=== PATIENT | male | born 1950 | race Caucasian/White ===

== ENCOUNTER → 2016-05-12 | Outpatient (CLI) | payer OTHER | LOC: MMPC 11:11 | PROVIDERS: ATTEND Internal Medicine | DX: E11.65 Type 2 diabetes mellitus with hyperglycemia (principal); I10 Essential (primary) hypertension; E03.9 Hypothyroidism, unspecified; E78.5 Hyperlipidemia, unspecified | CPT/HCPCS: 99214; G0463 ==

== ENCOUNTER → 2016-06-10 | Outpatient (CLI) | payer OTHER ==
--- NOTE | 2016-06-10 11:57 | DI ---
AP PELVIS and LEFT HIP, 06/10/2016 10:19 AM: Clinical History: Left hip pain. Previous Exam: None at this facility. There is no soft tissue abnormality. The bony structures of the pelvis are normal. 2 views of the lef t hip are normal. Readin. No acute or chronic abnormality of the left hip is noted. 2. The AP pelvis view is unremarkable.
--- NOTE | 2016-06-10 13:15 | DI ---
LUMBAR SPINE SERIES, 06/10/2016 11:04 AM: Clinical History: Low back pain. Previous Exam: 09/05/2009. Upright AP and lateral and upright lateral flexion and extension views are submitted. The vertebral b odies are of normal height and size. The patient is status post laminectomies from L3-L5. There is se vicki disc space narrowing at L2-3 through L4-5 with moderately severe narrowing at L1-2 and L5-S1. Th ere is a grade 1 reverse spondylolisthesis at L4-5 and this does not change with flexion and extensio n maneuvers. Both SI joints are normal. Readin. Chronic disc space narrowing is present at all lumbar levels. The patient is status post laminect omies at L3-L5. 2. There is a grade 1 reverse spondylolisthesis at L4-5 and this does not change with flexion and ex tension maneuvers. There are degenerative arthritic changes at all apophyseal joint levels but most s everely between L2-3 through L5-S1.
== END ==
LOC: ORTHO 11:22
PROVIDERS: ATTEND Physician Assistant
DX: M54.5 Low back pain (principal); M48.06 Spinal stenosis, lumbar region; M47.26 Other spondylosis with radiculopathy, lumbar region; M25.552 Pain in left hip; M16.12 Unilateral primary osteoarthritis, left hip
CPT/HCPCS: 72110; 73502; 99214; G0463

== ENCOUNTER 2016-06-11 13:57 | Day surgery (SDC) | payer OTHER ==
[~2016-06-11 13:57] MED LIST: BETAMET ACET/BETAMET NA PH 6 MG/1 ML - 5 ML ONE; Iopamidol Inj 61% 50 ML VIAL ONE; LIDOCAINE W/ SODIUM BICARB 0.5 ML SYR ONE; ROPIVACAINE HCL 7.5 MG/1 ML - 20 ML ONE
[2016-06-11 15:27] VITALS: RESP 18; TEMP 98
== END 2016-06-11 15:14 | disposition home or self-care (01) ==
LOC: SDSC 13:57
PROVIDERS: ATTEND Orthopaedic Surgery
DX: M16.12 Unilateral primary osteoarthritis, left hip (principal)
CPT/HCPCS: 20610; 76000; J0702

== ENCOUNTER → 2016-06-15 | Outpatient (CLI) | payer OTHER ==
[2016-06-15 15:22] LABS: CREATININE, URINE 74.3 MG/DL (15-500)
[2016-06-15 15:50] LABS: HEMOGLOBIN A1C 7.87 % (4.2-6.0)
[2016-06-15 15:51] LABS: BLOOD UREA NITROGEN 34 mg/dL (7-22); CALCIUM 8.5 mg/dL (8.7-10.7); CHOL/HDL RATIO 5.45 RATIO (0-4.0); EST GLOMERULAR FILTRATION > 60 (>60 ml/min/1.73m(2)); HDL CHOLESTEROL 37 mg/dL (40-150); SERUM ALBUMIN 3.4 g/dL (3.5-4.8); SERUM CHOLESTEROL 202 mg/dL (120-200)
[2016-06-15 16:38] LABS: HEMATOCRIT 45.1 % (42.0-52.0); HEMOGLOBIN 14.7 g/dL (14.0-18.0); MEAN CORPUSCULAR HEMOGLOBIN 26.5 PG (27-31); MEAN CORPUSCULAR HGB CONC 32.6 g/dL (33-37); MEAN CORPUSCULAR VOLUME 81.4 FL (80-90); MONOCYTES % (AUTO) 12.3 % (5-15); NEUTROPHILS % (AUTO) 62.8 % (50-80); RED BLOOD COUNT 5.54 10^6/uL (4.70-6.10)
[2016-06-15 16:39] LABS: BASOPHILS # (AUTO) 0.07 10*3/UL; BASOPHILS % (AUTO) 0.8 % (0-1); EOSINOPHILS # (AUTO) 0.19 10*3/UL; EOSINOPHILS % (AUTO) 2.1 % (0-8); LYMPHOCYTES # (AUTO) 1.93 10*3/uL; MONOCYTES # (AUTO) 1.09 10*3/UL (0.3-0.8); NEUTROPHILS # (AUTO) 5.56 10*3/UL; PLATELET MORPHOLOGY COMMENT NORMAL MORPHOLOGY (NORM); RBC MORPHOLOGY COMMENT NORMAL MORPHOLOGY (NORM); WBC MORPHOLOGY COMMENT NORMAL MORPHOLOGY (NORM)
== END ==
LOC: LAB 14:28
PROVIDERS: ATTEND Internal Medicine
DX: E11.9 Type 2 diabetes mellitus without complications (principal); Z79.4 Long term (current) use of insulin; E78.5 Hyperlipidemia, unspecified; I10 Essential (primary) hypertension; E03.9 Hypothyroidism, unspecified; Z12.5 Encounter for screening for malignant neoplasm of prostate
CPT/HCPCS: 36415; 80053; 80061; 82043; 82550; 83036; 84443; 85025; G0103

== ENCOUNTER → 2016-06-16 | Outpatient (CLI) | payer OTHER ==
--- NOTE | 2016-06-16 20:55 | DI ---
MRI LUMBAR SPINE SCAN WITHOUT AND WITH IV CONTRAST, 06/16/2016 8:56 AM: Clinical History: Lumbosacral spondylosis with radiculopathy. Previous Exam: 06/27/2012. Sequences: Pre and post contrast sagittal and post contrast axial T1 weighted images with precontrast sagittal and axial T2 weighted and axial PD scans. Contrast Dose: 20 mL of ProHance (279.3 mg/mL) The vertebral bodies are of normal height and size. The patient is status post laminectomies from L3- L5 and there may be partial fusion between the L2-3 vertebral bodies on the right side. There is reve rsal of the lumbar lordosis with what actually represents lumbar kyphosis, with a grade 1 reverse spo ndylolisthesis at L4-5. Severe disc space narrowing is present at L3-4 through L5-S1 with moderately severe narrowing at L1-2. The cord terminates at T12, and the conus medullaris is normal. The T9-10 disc space is normal. There is a bulging but not herniated disc without canal or right neural foramin al stenosis at T10-11. There is left neural foraminal stenosis. T11-12 has a mild central bulging but not herniated disc without canal or neural foraminal stenosis. T12-L1 disc space is normal. L1-2 has bony proliferative change on the right side producing a mild extradural defect but there is no canal or neural foraminal stenosis. A similar finding is present at L2-3 with bony spurring on the right s mc with right neural foraminal stenosis and no canal or left neural foraminal stenosis. The nerve ro ots still exit appropriately. L3-4 as a bulging but not herniated disc without canal or neural forami nal stenosis. There is scar formation along the posterior aspect of the dura. L4-5 has a bulging but not herniated disc and a grade 1 reverse spondylolisthesis and hypertrophic changes of the apophyseal joints and ligamentum flavum. Even with the laminectomy, there is spinal canal stenosis with severe left and moderate right neural foraminal stenosis. The nerve root still exits appropriately on the ri ght side. L5-S1 has a grade 1 reverse spondylolisthesis with a bulging but not herniated disc. There is no canal stenosis but there is bilateral neural foraminal stenosis. Readin. Status post L3-L5 laminectomies with reversal of the usual lumbar lordosis and a grade 1 reverse spondylolisthesis at L4-5. Even with the laminectomies at L4 and L5, there still is spinal canal sten osis at L4-5 with scar tissue formation along the posterior aspect of the dura. There is no significa nt neural foraminal stenosis. 2. There is a grade 1 reverse spondylolisthesis at L5-S1 with bilateral neural foraminal stenosis an d no canal stenosis. 3. L1-2 and L2-3 have bony right-sided anterior extradural indentations without canal or neural fora hussein stenosis. There is no disc herniation. 4. There are bulging but not herniated discs without canal or neural foraminal stenosis at T10-11 an d L3-4. There is postsurgical scarring present along the posterior aspect of the dura at L3-4. 5. The T9-10 and T12-L1 disc spaces are normal.
== END ==
LOC: MRI 08:53
PROVIDERS: ATTEND Physician Assistant
DX: M47.27 Other spondylosis with radiculopathy, lumbosacral region (principal); M43.16 Spondylolisthesis, lumbar region; M43.17 Spondylolisthesis, lumbosacral region; M47.815 Spondylosis without myelopathy or radiculopathy, thoracolumbar region
CPT/HCPCS: 72158

== ENCOUNTER → 2016-06-18 | Outpatient (CLI) | payer OTHER | LOC: MMPC 10:00 | PROVIDERS: ATTEND Orthopaedic Surgery | DX: M16.12 Unilateral primary osteoarthritis, left hip (principal) | CPT/HCPCS: 99213; G0463 ==

== ENCOUNTER → 2016-08-19 | Outpatient (CLI) | payer OTHER | LOC: MMPC 11:11 | PROVIDERS: ATTEND Internal Medicine | DX: E11.9 Type 2 diabetes mellitus without complications (principal); E03.9 Hypothyroidism, unspecified; I10 Essential (primary) hypertension; E78.5 Hyperlipidemia, unspecified; G81.94 Hemiplegia, unspecified affecting left nondominant side; M16.12 Unilateral primary osteoarthritis, left hip; Z86.73 Personal history of transient ischemic attack (TIA), and cerebral infarction without residual deficits; Z86.711 Personal history of pulmonary embolism | CPT/HCPCS: 99214; G0463 ==

== ENCOUNTER → 2016-08-26 | Outpatient (CLI) | payer OTHER | LOC: MMPC 10:00 | PROVIDERS: ATTEND Physician Assistant | DX: M48.07 Spinal stenosis, lumbosacral region (principal); M48.06 Spinal stenosis, lumbar region; M16.12 Unilateral primary osteoarthritis, left hip | CPT/HCPCS: 99213; G0463 ==

== ENCOUNTER → 2016-09-02 | Outpatient (CLI) | payer OTHER ==
--- NOTE | 2016-09-04 11:35 | DI ---
STANDING SCOLIOSIS SERIES, 09/02/2016 2:30 PM: Clinical History: Radicular syndrome of lower limbs. Previous Exam: None at this facility. Standing AP and lateral views are submitted. The vertebral bodies are of normal height and size. The thoracic disc spaces show degenerative change at all levels but most severely at T10-11. There is an terior subluxation of T11 on T12 by about 2 mm. There is severe disc space narrowing at every lumbar level with a grade 1 reverse spondylolisthesis at L4-5. The pedicles in the thoracic and lumbar regio n are normal. Extensive arthritic changes are present in the apophyseal joints from T9-10 through L5- S1. There has been fusion of the left sacroiliac joint with placement of 3 metallic bars in the joint space. Laminectomies have been performed at L3-L5. There is mild dextroscoliosis of the midthoracic spine with a compensatory levoscoliosis of the mid lumbar spine. Mederos angles for the thoracic and lum bar regions are 8 degrees and 11 degrees, respectively. Spinal-Pelvic Relationship Measurements: SVA: 138 mm. T1 Tilt: -3 degrees. PT: 35 degrees. PI: 48 degrees. SS: 12 degrees. LL: -28 degrees. TK: 22 degrees. Readin. The patient is status post laminectomies from L3-L5 and fusion of the left sacroiliac joint. Exte nsive to space narrowing is present throughout the lumbar spine and in the lower thoracic spine with a grade 1 reverse spondylolisthesis at L4-5 and anterior subluxation of T11 on T12 by 2 mm. 2. There is mild dextroscoliosis of the midthoracic spine with a Meedros angle of 8 degrees, and a comp ensatory mild levoscoliosis of the mid lumbar spine with a Mederos angle of 11 degrees. 3. Spinal pelvic relationship measurements are as above. On the lateral view, the patient has lost l umbar lordosis and there is actually lumbar kyphosis.
== END ==
LOC: RAD 14:26
PROVIDERS: ATTEND Neurological Surgery
DX: M54.5 Low back pain (principal); M54.16 Radiculopathy, lumbar region; M43.16 Spondylolisthesis, lumbar region; Z98.1 Arthrodesis status
CPT/HCPCS: 72082

== ENCOUNTER 2016-09-08 06:32 | Day surgery (SDC) | payer OTHER ==
[~2016-09-08 06:32] MED LIST changes: -BETAMET ACET/BETAMET NA PH 6 MG/1 ML - 5 ML ONE; +BUPivacaine Inj 0.25% PF - 10ml vial IV ONE; +Iopamidol Inj 61% 50 ML VIAL INTRATHEC ONE; -Iopamidol Inj 61% 50 ML VIAL ONE; -LIDOCAINE W/ SODIUM BICARB 0.5 ML SYR ONE; -ROPIVACAINE HCL 7.5 MG/1 ML - 20 ML ONE; +TRIAMCINOLONE ACETONIDE 40 MG/1 ML IAC ONE
--- NOTE | 2016-09-08 07:32 | GEN.OPNOTE ---
Transforaminal MAN Procedure Code - Neurosurgery: 17052 : Lumbar Transforaminal Epidural, 19025 : Lumbar Transforaminal Epidural (Add'l Levels) Preoperative Diagnosis: Lumbar stenosis -: Consent: Rationale for procedure, nature of procedure, possible risks and benefits were discussed with the patient. Risks including allergic reaction to medications, known effects of steroid medications including transient elevation in blood sugar with aggravation of pre-existing diabetes and remote risk of aseptic necrosis of the hip. Pain at the injection site, inadvertent dural puncture with resultant in CSF leak and headache possibly requiring further treatment. Infection or bleeding with potential risk of neurologic injury with weakness, paralysis or were all reviewed with the patient who wished to proceed. Anesthesia, sedation: No intravenous access or sedation was used. Physiologic monitoring of pulse and oxygen saturation was utilized. Procedure: The patient was placed prone on the operating room table, prepped with Chloraprep and sterilely draped. The skin was anesthetized with 1% Buffered Xylocaine. Under fluoroscopic control a 22-gauge Touhy needle was advanced into the area of the Kambin's triangle at the left [id number]. Imaging confirmation of needle placement in the posterior, inferior and lateral quadrant of the foramen was obtained. Omnipaque was injected under real-time fluoroscopy demonstrating and epidurogram. Following this 1 ml of a mixture of kenalog(10mg/ml) and 1% ropivacaine was injected. AP and lateral images of the final needle placement was obtained. The needle was removed, the same was done at L5S1 and the patient returned to the post procedure recovery room where they were monitored for any side effects. Pain assessment: Preprocedure pain []/10, post procedure pain []/10. Discharge instructions: Patient was given a pain log to be filled out and returned. A delayed response to the steroids of 2-5 days was discussed.
[2016-09-08 07:42] VITALS: RESP 18; TEMP 97.4
== END 2016-09-08 07:37 | disposition home or self-care (01) ==
LOC: SDSC 06:32
PROVIDERS: ATTEND Pain Medicine Interventional Pain Medicine
DX: M48.06 Spinal stenosis, lumbar region (principal)
CPT/HCPCS: 64483; 64484; 76000; J3301; S0020

== ENCOUNTER 2016-09-21 10:30 | Day surgery (SDC) | payer OTHER ==
[~2016-09-21 10:30] MED LIST changes: +BETAMET ACET/BETAMET NA PH 6 MG/1 ML - 5 ML ONE; -BUPivacaine Inj 0.25% PF - 10ml vial IV ONE; -Iopamidol Inj 61% 50 ML VIAL INTRATHEC ONE; +Iopamidol Inj 61% 50 ML VIAL ONE; +LIDOCAINE MPF 2% - 5 ML (20 MG/1 ML) ONE; +LIDOCAINE W/ SODIUM BICARB 0.5 ML SYR ONE; +ROPIVACAINE HCL 7.5 MG/1 ML - 20 ML ONE; -TRIAMCINOLONE ACETONIDE 40 MG/1 ML IAC ONE
[2016-09-21 12:05] VITALS: RESP 22
[2016-09-21 12:13] VITALS: TEMP 97.6
== END 2016-09-21 11:26 | disposition home or self-care (01) ==
LOC: SDSC 10:30
PROVIDERS: ATTEND Orthopaedic Surgery
DX: M16.12 Unilateral primary osteoarthritis, left hip (principal)
CPT/HCPCS: 20610; 76000; J0702; J2001; J2795

== ENCOUNTER → 2016-09-27 | Outpatient (CLI) | payer OTHER | LOC: MMPC 10:00 | PROVIDERS: ATTEND Orthopaedic Surgery | DX: M16.12 Unilateral primary osteoarthritis, left hip (principal); M54.16 Radiculopathy, lumbar region | CPT/HCPCS: 99213; G0463 ==

== ENCOUNTER 2016-11-26 09:31 | Inpatient (IN) ==
--- NOTE | 2016-11-26 09:41 | PDOC ---
Dyspnea HPI - General Chief Complaint: Dyspnea Stated Complaint: DYSPNEA Date Seen by Provider: 11/26/16 Time Seen by Provider: 09:41 Source: POSITIVE: Patient, Spouse Exam Limitations: POSITIVE: No limitations Treatment Prior to Arrival: REPORTS: Albuterol Neb Treatment - History of Present Illness Initial Comments: Mr. Acevedo is a 66-year-old man coming in into us today with chest pain acute in onset this morning and his left rib area. He was recently diagnosed with recurrence of pulmonary emboli. He was seen here at this hospital on November 19. He was diagnosed with bilateral pulmonary emboli, and transferred to [place]. While in [place], he received anticoagulation in the form of heparin drip. He did not undergo thrombolysis as his vital signs otherwise remained stable. He was discharged on Tuesday, which was 3 days ago, and was initially prescribed Pradaxa. The family was unable to afford this, and so he was switched over to Eliquis by his family physician. He has not taken it yet as he has not picked it up. His states that it is waiting at [facility] this morning and he was going to start taking it today. The chest pain started earlier this morning while he was swinging his leg up to get into bed. Is located in his left anterior distal rib area. He reports mild shortness of breath but no real new shortness of breath since he heard about his diagnosis a few days ago. His oxygen saturation was low when EMS arrived. Family states that hospital staff spoke with him about setting up with home oxygen when he was discharged from [facility] earlier this week. He has no fevers, no cough, no nausea no vomiting no lightheadedness or dizziness. He received a DuoNeb from EMS personnel prior to arrival and it seemed to help him a little bit - Patient Home Medications Home Medications: Home Medications Syring-Needl,Disp,Insul,0.3 ml [Insulin Syringe] 0.3 ml MC 6XD #540 ea 07/22/15 Clindamycin Phosphate 1 applic TOPICAL BID #1 applic 10/24/15 Insulin Glargine Inj [Lantus Inj] 25 units SQ BID #5 vial 06/09/16 Sennosides [Vegetable Laxative] 8.6 mg PO DAILY tab 08/19/16 Zinc Gluconate [Zinc] 50 mg PO DAILY tab 08/19/16 Celecoxib [Celebrex] 1 cap PO DAILY #30 cap 09/01/16 Blood Sugar Diagnostic [Glucose Test Strip] 1 ea IN 6XD #204 strip 09/10/16 Gabapentin 300 mg PO TID #360 cap 09/10/16 Insulin, Lispro [Humalog] 2 - 25 unit SUBCUT TIDWM #22 ea 09/10/16 Levothyroxine Sodium [Synthroid] 1 tab ORAL QD #90 tab 10/01/16 Losartan/Hydrochlorothiazide [Losartan-Hctz 100-25 Mg Tab] 0.5 tab PO DAILY #45 tab 10/01/16 Furosemide 1 tab PO BID #360 tab 10/20/16 hydrocodone 7.5 mg-acetaminophen 325 mg tablet 1 tab PO Q4-6H PRN #120 tab MDD 4 TABS 11/05/16 apixaban 5 mg tablet 5 mg PO BID #60 tab 11/25/16 - Patient Allergies Allergies/Adverse Reactions: Allergies 3 Allergy/AdvReac Type Severity Reaction Status Date / Time aspirin [Aspirin] Allergy Severe SWELLING Verified 11/26/16 09:23 Qsdypwa-Hul-Yfy Reductase AdvReac NOT Verified 11/26/16 09:23 Inhibitor APPLICABLE pencillin Allergy Unknown unknown Uncoded 11/26/16 09:23 Past Medical History - heen HEENT History: Cataracts Additional HEENT History: laser surg right eye Cardiovascular History: Hypertension, PVD, Hyperlipidemia Respiratory History: Denies History Gastrointestinal History: GERD Additional Gastrointestinal History: FLANK PAIN/LOWER ABDOMINAL PAIN/ CHRONIC CONSTIPATION Genitourinary History: Recurrent UTI Additional Genitourinary History: HX OF CHRONIC UTIS Endocrine History: Type 2 Diabetes (insulin), Hypothyroidism Additional Endocrine History: DIABETIC ULCERS OPEN LLE. SMALL HEALING ON RLE Musculoskeletal History: Other (please comment) Prosthesis or Implant: No Additional Musculoskeletal History: CHRONIC LOW BACK PAIN; HAS HAD LUMBAR SURGERY. Fx left fibula 2005 Neurological History: CVA Additional Neurological History: has dysarthria; also numbness left arm/hand, left facial droop; strength "OK" although he "can't always trust his left leg" even though it's not weak per se. Blood Disorders: Denies History Psychiatric History: Denies History History of Sexually Transmitted Diseases: No Cancer History: Denies History History of MDRO: No History of Other Communicable Diseases: No Alcohol Use: None In the Past 12 Months, Have Used or Abuse Any Substance: None Previous Surgical History: Yes Type / Date of Surgery: BACK SX/ EYE SX Anesthesia Reactions: No Malignant Hyperthermia: No Past Medical History Reviewed: Reviewed - No Changes ROS - Limitations ROS Limitations: No Limitations Constitution: REPORTS: Denies Symptoms Cardiovascular: REPORTS: Chest Pain Respiratory: REPORTS: Shortness Of Breath Neurological: REPORTS: Denies Neuro Symptoms Gastrointestinal: REPORTS: Denies GI Symptoms Endocrine: REPORTS: Denies Symptoms Musculoskeletal: REPORTS: Denies MS Symptoms Genitourinary: REPORTS: Denies Symptoms Eyes: REPORTS: Denies Symptoms ENT: REPORTS: Denies Symptoms Skin: REPORTS: Denies Skin Symptoms Lympathic: REPORTS: Denies Lympathic Symptoms Immunologic: POSITIVE: Denies Symptoms Psychiatric: POSITIVE: Denies Psych Symptoms Dyspnea Physical Exam - General Appearance General Appearance: REPORTS: Alert, Cooperative, No Acute Distress - HEENT HEENT: POSITIVE: Head Inspection Nml, Eyes Inspection Nml, Ears Inspection Nml, PERRL, EOMI - Neck Neck: REPORTS: Normal Inspection - Respiratory Respiratory: REPORTS: No Respiratory Distress, Speaks Full Sentences, No Pain on Inspiration (No retractions, no wheezing, breath sounds are slightly coarse diffusely but there is good air movement) - Cardiovascular Cardiovascular: REPORTS: Regular Rate and Rhythm, Heart Sounds Normal, Equal Pulses, Strong Pulses Peripheral Pulses: Radial (R): 2+, Radial (L): 2+, Dorsalis-pedis (R): 1+, Dorsalis-pedis (L): 1+ - Abdomen Abdomen: Soft: (All Quadrants), Normal Bowel Sounds: (All Quadrants), Denies Tenderness: (All Quadrants), No Guarding: (All Quadrants), No Rebound: (All Quadrants), No Distention: (All Quadrants) - Skin Skin: REPORTS: Intact, Normal For Race, Warm, Dry - Extremities Extremity: Non-Tender: (All Extremities), Normal ROM: (All Extremities) - Neurological / Psychological Neurological: POSITIVE: Affect Apporpriate, Oriented X3, watchstander Normal As Tested ( Curtis's slow speech is chronic and stable) Dyspnea Progress - Results Reviewed by me Xrays/CTs/US Reviewed by me: Yes Lab Results Reviewed by Me: Yes CBC and BMP: 11/26/16 09:42 11/26/16 09:42 EKG Interpreted/Reviewed By Me:: Yes EKG Interpretation:: POSITIVE: Normal Sinus Rhythm - Patient's Progress MDM / ED Course: Mr. Rich is a 66-year-old man coming in to us today with acute hypoxia and some chest discomfort likely secondary to a previously diagnosed pulmonary embolism. He has not been on any anticoagulation since leaving [facility] earlier this week on a think this is his largest problem here today. His troponin is slightly elevated, but it is much less than it was at last visit so I think we are catching it on the downswing and it does not represent any new problem. X-ray and the remainder of his labs are not concerning. He remained hypoxic requiring 6 L of these at the nasal cannula to stay above 90%. He got slightly nauseated while he was here, so we gave him a dose of Zofran. We also gave him 2 DuoNeb's which seems to help his E's of breathing. Contacted Dr. Bustillo with the hospitalist service to admit the patient for trending troponins and to monitor his oxygen level. This will also give them a chance to get him started on his anticoagulation Patient Care Time - Estimated PCT Patient Care Time (In Minutes): 35 Vital Signs - Recent Vital Signs Vital Signs: Vital Signs (Last 8 hours) Temp Pulse Resp BP Pulse Ox 11/26/16 09:43 97.4 F 88 22 149/98 85 - VS Reviewed Vital Signs Reviewed: Yes Discharge Clinical Impression: Elevated troponin Discharge Disposition: Admit to Inpatient Condition: Fair Follow Up With: NONE,NONE [Primary Care Provider] - Date Decision to Admit to Inpatient: 11/26/16 Time Decision to Admit to Inpatient: 11:10
--- NOTE | 2016-11-26 09:44 | EKG ---
[address] [address] Measurements Intervals [place] Rate: 83 P: 3 NC: 191 QRS: 7 QRSD: 87 T: 47 QT: 352 QTc: 392 Interpretive Statements SINUS RHYTHM Compared to ECG 11/19/2016 08:14:10 No significant changes Electronically Signed On 11-26-16 10:13:29 MDT by Chance Holman MD [email or web address]
[2016-11-26 10:03] LABS: VENOUS PH 7.44 (7.32-7.42)
[2016-11-26 10:05] LABS: BASOPHILS # (AUTO) 0.07 10*3/UL; BASOPHILS % (AUTO) 0.8 % (0-1); EOSINOPHILS # (AUTO) 0.49 10*3/UL; EOSINOPHILS % (AUTO) 5.9 % (0-8); Hematocrit [HCT] 46.7 % (42.0-52.0); Hemoglobin [HGB] 15.5 g/dL (14.0-18.0); LYMPHOCYTES # (AUTO) 1.79 10*3/uL; MEAN CORPUSCULAR HEMOGLOBIN 28.2 PG (27-31); MEAN CORPUSCULAR HGB CONC 33.2 g/dL (33-37); MEAN CORPUSCULAR VOLUME 84.9 FL (80-90); MEAN PLATELET VOLUME 9.8 FL (7.4-12.2); MONOCYTES # (AUTO) 1.11 10*3/UL (0.3-0.8); MONOCYTES % (AUTO) 13.4 % (5-15); NEUTROPHILS # (AUTO) 4.79 10*3/UL; NEUTROPHILS % (AUTO) 57.9 % (50-80)
[2016-11-26 10:12] LABS: BLOOD UREA NITROGEN 17 mg/dL (7-22)
[2016-11-26 10:17] LABS: PLATELET MORPHOLOGY COMMENT NORMAL MORPHOLOGY (NORM); RBC MORPHOLOGY COMMENT NORMAL MORPHOLOGY (NORM); WBC MORPHOLOGY COMMENT NORMAL MORPHOLOGY (NORM)
[2016-11-26] MEDS ORDERED: NORMAL SALINE 10 ML SYRINGE FLUSH IVP PRN ×2 (10:41→14:40)
[2016-11-26] MEDS ORDERED: Sodium Chloride 0.9% 1,000 ML PRIMARY IV ONE (10:41)
[2016-11-26] MEDS ORDERED: ONDANSETRON 4 MG/2 ML VIAL IVP ONE ×2 (10:59→11:00)
[2016-11-26] MEDS ORDERED: ALBUTEROL SULFATE 5 MG/ML-20 ML BOTTLE NEB ONE (10:59)
--- NOTE | 2016-11-26 11:01 | DI ---
PA /LATERAL CHEST X-RAY, 11/26/2016 9:42 AM : Clinical History: Dyspnea. Previous Exam: 11/19/2016. There is no acute soft tissue or bony abnormality. There is cardiomegaly without CHF. Lungs are clear . Mediastinal structures are normal. There are no pulmonary nodules. Reading: Cardiomegaly without CHF. There has been no significant interval change.
[2016-11-26] MEDS ORDERED: SODIUM CL 0.9% FOR INH 3 ML NEB NEB ONE (11:17)
[2016-11-26] MEDS ORDERED: Apixaban 5 MG TABLET PO ONE (11:17)
[2016-11-26] MEDS ORDERED: LIDOCAINE W/ SODIUM BICARB 0.5 ML SYR SUBD PRN (14:40)
[2016-11-26] MEDS ORDERED: HYDROcodone-APAP 7.5 MG-325 MG TABLET PO PRN (14:44)
--- NOTE | 2016-11-26 14:52 | PDOC ---
HPI - History of Present Illness Date and Time of Service: 11/26/2016 3 PM Chief Complaint: Chest pain with shortness of breath this morning History of Present Illness: This is a 66 years old male with medical history significant for history of hypertension, diabetes, hypothyroidism history of previous PE in 2013 and recent presentation to our hospital with shortness of breath a CT done showed PE acute on chronic and he was transferred to [place] apparently he was put on heparin drip then Lovenox and was discharge on pradaxa however he was unable to get the prescription and he wanted then to switch to eliquis so they got hold of Dr. Madison and that was yesterday he is supposed to get medication today. However he said last night his saturation was 93 he had minimal pain in the chest but this morning he felt like left-sided chest pain worse with taking deep breath he rated his pain at 6 out of 10 and there was no radiation elsewhere and saturation where lower like in the 80s so he will came into the hospital. Was seen in the ER did repeat chest x-ray and was negative a troponin was still mildly elevated but it was lower than a week ago was decided since the patient was not taking his medication to give him eliquis and admitted her to continue the treatment of his PE. When I saw him he had minimal pain and the he is not short of breath. He did report some swelling in his legs but this is old. Past Medical History Medical History: 1. Diabetes mellitus. 2. Hypertension. 3. History of CVA that affected his speech. 4. Hypothyroidism. 5. History of PE at was saddle embolism in 2012 and also recent PE was transferred to [place] to also Surgical History: 1. Lumbar Spine surgery. 2. Sciatic nerve release lateral side of the left knee Family History: Reviewed an Not Pertinent Past Social History: Patient doesn't smoke, doesn't drink nor drugs Tobacco Use: Never Smoker In the Past 12 Months, Have Used or Abuse Any of the Following Substance: None Alcohol Use: None Medication / Allergies Home Medications: Home Medications Medication Instructions Recorded Confirmed Type Syring-Needl,Disp,Insul,0.3 ml 0.3 ml MC 6XD #540 ea 07/22/15 11/26/16 History [Insulin Syringe] Clindamycin Phosphate 1 applic TOPICAL BID #1 applic 10/24/15 11/26/16 History Insulin Glargine Inj [Lantus Inj] 25 units SQ BID #5 vial 06/09/16 11/26/16 Rx Sennosides [Vegetable Laxative] 8.6 mg PO DAILY tab 08/19/16 11/26/16 History Zinc Gluconate [Zinc] 50 mg PO DAILY tab 08/19/16 11/26/16 History Celecoxib [Celebrex] 1 cap PO DAILY #30 cap 09/01/16 11/26/16 Rx Blood Sugar Diagnostic [Glucose 1 ea IN 6XD #204 strip 09/10/16 11/26/16 Rx Test Strip] Gabapentin 300 mg PO TID #360 cap 09/10/16 11/26/16 Rx Insulin, Lispro [Humalog] 2 - 25 unit SUBCUT TIDWM #22 ea 09/10/16 11/26/16 Rx Levothyroxine Sodium [Synthroid] 1 tab ORAL QD #90 tab 10/01/16 11/26/16 Rx Losartan/Hydrochlorothiazide 0.5 tab PO DAILY #45 tab 10/01/16 11/26/16 Rx [Losartan-Hctz 100-25 Mg Tab] Furosemide 1 tab PO BID #360 tab 10/20/16 11/26/16 Clinic hydrocodone 7.5 mg-acetaminophen 1 tab PO Q4-6H PRN #120 tab MDD 4 11/05/16 Rx 325 mg tablet TABS apixaban 5 mg tablet 5 mg PO BID #60 tab 11/25/16 11/26/16 Rx Allergies/Adverse Reactions: Allergies 3 Allergy/AdvReac Type Severity Reaction Status Date / Time aspirin [Aspirin] Allergy Severe SWELLING Verified 11/26/16 13:32 Nuyvgzd-Yoj-Qcr Reductase AdvReac NOT Verified 11/26/16 13:32 Inhibitor APPLICABLE pencillin Allergy Unknown unknown Uncoded 11/26/16 13:32 Review of Systems - Review of Systems All Systems: Reviewed & No Additional Complaints Except as Stated Exam - Vitals Vital Signs: Vital Signs Pulse Rate 60 Blood Pressure 125/74 Pulse Ox 98 Height 5 ft 6 in Weight 258 lb 6 oz Results - Labs CBC and BMP: 11/26/16 09:42 11/26/16 09:42 - EKG Data -: EKG Interpreted by Me Rate: Normal EKG Shows Normal: Sinus Rhythm - EKG Data When Compared to Previous EKG(s) There Are: No Significant Change Assessment and Plan - Patient Problems (1) Bilateral pulmonary embolism Current Visit: No Status: Acute Comment: I looked at both CT from 2012 and the from November 19, the CT from 2012 showed saddle embolus and the one in November 19 showed acute and chronic component to his PE. I think he needs to be on medication to treat this will try to get the records meanwhile I think will put him on eliquis 10 mg dosage twice a day. Will repeat his labs in the morning. There is some wheezing so we 'll put him also on bronchodilator. I did tell him that I think there is a chronic component so he may need thrombectomy and I suggested maybe a referral to [place] however both him and his declined going elsewhere not even for outpatient follow-up. I don't think there is a reason to repeat his CT as I think likely it will still show the same finding that he had November 19, I think he does need to be on active treatment for the PE as he did not take medications since she was discharged on Tuesday. Code(s): I26.99 - Other pulmonary embolism without acute cor pulmonale (2) Diabetes Current Visit: Yes Status: Acute Comment: Continue Lantus and will put him on sliding scale Code(s): E11.9 - Type 2 diabetes mellitus without complications (3) Hypertension Current Visit: Yes Status: Acute Comment: Same medication Code(s): I10 - Essential (primary) hypertension
[2016-11-26] MEDS: GABAPENTIN 300 MG CAPSULE PO SCH ×2 (16:55→21:23)
[2016-11-26] MEDS ORDERED: HYDROcodone-APAP 5 MG -325 MG TABLET PO PRN (16:58)
[2016-11-26] MEDS ORDERED: Senna Tab 8.6 MG TAB PO ONE (16:59)
[2016-11-26] MEDS: Insulin Lispro Flexpen 300 UNIT/3 ML INSULN.PEN SUBCUT SCH (17:24)
--- NOTE | 2016-11-26 18:51 | DI ---
VENOUS DOPPLER ULTRASOUND OF BOTH LOWER EXTREMITIES, 11/26/2016 2:49 PM: Clinical History: Pulmonary embolism. Previous Exam: None at this facility. Technique: 2D real-time imaging is supplemented with color Doppler ultrasound. Compression and augmen tation maneuvers were performed. The deep venous system from the groin to the popliteal fossa for the right leg is normal. The deep ve nous system of the left leg is visualized from the groin to just proximal to Kwasi's canal as well a s in the popliteal fossa. A small of the superficial femoral vein just superior to Kwasi's canal was not completely visualized. The greater saphenous veins are normal. Reading: A very short segment of the superficial femoral vein in the distal thigh just proximal to Kwasi's ca nal could not be optimally visualized. However, the remainder of the deep venous system in the left l eg and the entire deep venous system in the right leg are negative for deep vein thrombosis.
[2016-11-26] MEDS: LEVALBUTEROL HCL 0.63 MG/3 ML NEB SCH (19:19)
[2016-11-26] MEDS ORDERED: INSULIN GLARGINE 25 UNIT SQ SCH (21:00)
[2016-11-26] MEDS: Insulin Glargine SoloStar Inj 100 UNIT/ML INSULN.PEN SUBCUT SCH (21:23)
[2016-11-26] MEDS: Apixaban 5 MG TABLET PO SCH (21:23)
[2016-11-27] MEDS: LEVALBUTEROL HCL 0.63 MG/3 ML NEB SCH ×3 (00:36→15:25)
[2016-11-27] MEDS ORDERED: LEVOTHYROXINE 125 MCG TABLET PO SCH (05:30)
[2016-11-27 05:40] LABS: BLOOD UREA NITROGEN 18 mg/dL (7-22); BUN/CREATININE RATIO 16.36 (6-20)
[2016-11-27 08:31] VITALS: BP 128/68; RESP 20; TEMP 97.4; O2SAT 91
[2016-11-27] MEDS: GABAPENTIN 300 MG CAPSULE PO SCH ×2 (08:51→15:15)
[2016-11-27] MEDS: Insulin Lispro Flexpen 300 UNIT/3 ML INSULN.PEN SUBCUT SCH ×2 (08:51→13:49)
[2016-11-27] MEDS: Apixaban 5 MG TABLET PO SCH (08:51)
[2016-11-27] MEDS: Insulin Glargine SoloStar Inj 100 UNIT/ML INSULN.PEN SUBCUT SCH (08:53)
[2016-11-27] MEDS ORDERED: Senna Tab 8.6 MG TAB PO SCH (09:00)
[2016-11-27] MEDS ORDERED: LOSARTAN/HYDROCHLOROTHIAZIDE 50 MG/12.5 MG TABLET PO SCH (09:00)
--- NOTE | 2016-11-27 10:06 | PDOC(PROG) ---
Date and Time of Service: 11/27/2016 10 AM Interval History: Subjective Patient feels better no chest pain today and no shortness of breath. Objective : Data - Labs CBC and BMP: 11/27/16 13:01 11/27/16 13:01 Objective : Exam - General General Appearance: No Acute Distress, Cooperative, Obese - Head Head Exam: Normal Inspection, Atraumatic - Eye Eye Exam: Normal Appearance - ENT ENT Exam: Normal Exam - Neck Neck Exam: Normal Inspection - Respiratory Additional Respiratory Exam Details: Lungs are more clear today compared to yesterday minimal wheeze. - Cardiovascular Cardiovascular Exam: RRR - GI/Abdominal GI/Abdominal Exam: Normal Bowel Sounds, Non Tender, Non Distended, Soft - Rectal Rectal Exam: Deferred - External Exam: Deferred - Extremities Additional Extremities Exam Details: Chronic dermatitic changes noted, edema of the legs noted - Neurological Neurological Exam: Alert, Oriented x 3, CN II-XII Intact - Psychiatric Psychiatric Exam: Normal Affect Assessment and Plan - Patient Problems (1) Bilateral pulmonary embolism Current Visit: No Status: Acute Comment: Continue eliquis. I did speak with his and I told her to miner pick the prescription today. We will watch for another day will see how things looks tomorrow and will decide whether he is ready for discharge Code(s): I26.99 - Other pulmonary embolism without acute cor pulmonale (2) Diabetes Current Visit: Yes Status: Acute Comment: Same medications Code(s): E11.9 - Type 2 diabetes mellitus without complications (3) Hypertension Current Visit: Yes Status: Acute Comment: Same med Code(s): I10 - Essential (primary) hypertension
--- NOTE | 2016-11-27 12:58 | EKG ---
[address] [place] [address] Measurements Intervals [place] Rate: 80 P: 26 MO: 180 QRS: -11 QRSD: 88 T: 44 QT: 395 QTc: 431 Interpretive Statements SINUS RHYTHM MODERATE T-WAVE ABNORMALITY, CONSIDER ANTERIOR ISCHEMIA [-0.1+ mV T WAVE IN V3/V4] Compared to ECG 11/26/2016 09:38:29 T-wave abnormality now present Possible ischemia now present Electronically Signed On 11-28-16 12:28:32 MDT by Jim Springer [email or web address]
[2016-11-27 13:03] LABS: BASOPHILS # (AUTO) 0.09 10*3/UL; EOSINOPHILS # (AUTO) 0.48 10*3/UL; EOSINOPHILS % (AUTO) 5.2 % (0-8); Hematocrit [HCT] 46.2 % (42.0-52.0); Hemoglobin [HGB] 15.1 g/dL (14.0-18.0); LYMPHOCYTES # (AUTO) 2.37 10*3/uL; MEAN CORPUSCULAR HEMOGLOBIN 28.1 PG (27-31); MEAN CORPUSCULAR HGB CONC 32.7 g/dL (33-37); MEAN PLATELET VOLUME 9.5 FL (7.4-12.2); MONOCYTES # (AUTO) 1.15 10*3/UL (0.3-0.8); MONOCYTES % (AUTO) 12.5 % (5-15); NEUTROPHILS # (AUTO) 5.09 10*3/UL; NEUTROPHILS % (AUTO) 55.3 % (50-80); RED BLOOD COUNT 5.37 10^6/uL (4.70-6.10)
[2016-11-27] MEDS ORDERED: ONDANSETRON 4 MG/2 ML VIAL IVP PRN (13:04)
[2016-11-27] MEDS: HYDROmorphone 2 MG/1 ML IVP PRN ×2 (13:10→16:21)
[2016-11-27 13:11] LABS: PLATELET MORPHOLOGY COMMENT NORMAL MORPHOLOGY (NORM); RBC MORPHOLOGY COMMENT NORMAL MORPHOLOGY (NORM); WBC MORPHOLOGY COMMENT SEE COMMENTS (NORM)
[2016-11-27 13:13] LABS: BUN/CREATININE RATIO 13.57 (6-20); SERUM ALBUMIN 3.8 g/dL (3.5-4.8)
[2016-11-27 13:25] LABS: VENOUS PH 7.34 (7.32-7.42)
[2016-11-27] MEDS ORDERED: HYDROmorphone 2 MG/1 ML IVP ONE (13:47)
--- NOTE | 2016-11-27 14:30 | DI ---
Exam: CTA CHEST W Contrast INDICATION: Unstable, critically ill TECHNIQUE: Multiple, contiguous 3 mm axial cuts of the chest are obtained following the administration of IV contrast. High resolution axial image as well as, sagittal and coronal reformatted images are available. COMPARISON: CTA chest 11/19/16 FINDINGS: Since the prior CT chest angiogram a subtle embolism at the bifurcation of the main pulmonary artery appears to have migrated now into the right pulmonary artery with more thrombus accumulation at the bifurcation of the right pulmonary artery. Occlusive thrombus again noted in the right lower lobe pulmonary artery with occlusive thrombus in some of the right lower lobe segmental branches at the base as on prior exam. There is a right lateral segmental branch pulmonary artery now occluded at its mid segment distally. There is again thrombus in the left pulmonary artery at its bifurcation without a significant change. Nonocclusive pulmonary embolism in the left lower lobe pulmonary artery with extension to the proximal segmental basilar branches again noted. Nonocclusive pulmonary embolism in the lingular artery again noted. The subsegmental pulmonary arteries are not well visualized. Some of these may be related to diminutive caliber however likely there is subsegmental pulmonary embolism present in the lower lobes bilaterally and in the right middle lobe. Nonocclusive pulmonary embolism in the right upper lobe pulmonary artery again noted with the clot burden appearing to be somewhat increased since prior exam in the right upper lobe. Thoracic aorta normal caliber without dissection. Mild subsegmental atelectasis in the medial left lung base otherwise lungs are clear. No effusion or pneumothorax. Heart size normal. No pericardial effusion. Mediastinal lipomatosis producing a prominent appearance of the mediastinum. No adenopathy. Degenerative changes of the thoracic spine. No acute osseous abnormality. . IMPRESSION: 1. Bilateral pulmonary emboli are again noted as described above, which was present on prior CT chest angiogram of 11/19/16. 2. Since prior CT angiogram the saddle shape pulmonary embolism at the bifurcation of the main pulmonary artery appears to have migrated with more thrombus accumulation at the bifurcation of the right pulmonary artery. There appears to be more clot burden in the right lower lobe pulmonary artery and now within one of the right lateral basilar segmental branches which is likely the result of the migration of the saddle shaped embolism. 3. Appearance of some increase nonocclusive clot burden in the right upper lobe pulmonary artery when directly compared to prior exam. 4. No significant interval change in amount of clot burden on the left. 5. Minimal subsegmental atelectasis in the medial left lung base otherwise lungs are clear. No effusion. 6. Thoracic aorta normal caliber without dissection. Discussed with Dr. Bustillo on 11/27 14:28 (-06:00) Critical Value Communications 11/27/16 14:[address] Bustillo on 11/27 14:27 (-06:00)
--- NOTE | 2016-11-27 15:32 | DCSUMMARY ---
Hospitalization Summary Admit Date: 11/26/16 Discharge Date: 11/27/16 Hospital Course: Discharge diagnoses 1. Bilateral pulmonary embolism 2. Diabetes mellitus 3. Hypertension 4. Hypothyroidism 5. 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 History of PE with saddle embolism in 2012 7. History of Lumbar spine surgery 8. History of sciatic nerve release lateral side of the left leg Hospital course This is a 66 years old male with medical history significant for history of hypertension, diabetes, hypothyroidism and history of previous PE in 2012 and recent presentation to our hospital on November 19 with shortness of breath, he had a CT done which showed Multiple bilateral pulmonary emboli to include a saddle embolus. This was also seen on the prior exam, some of this may represent an acute on chronic process he was transferred to [facility] they decided not to give him thrombolytics because he was hemodynamically stable they started him on heparin then they switched him to Lovenox and he was discharge last Tuesday on pradaxa however he was unable to get the prescription and he then wanted to switch to eliquis so they got hold of Dr. Madison and that was yesterday he was suppose to get the medication on the day of admission on the however he said he woke up with the pain in the left side of the chest worse with taking deep breath and he rated the pain 6 out of 10 there no radiation and his saturation was also low because of that they came into the hospital. This time he was admitted to our hospital. He did get the eliquis. His oxygen needs were 3 L a minute. Based on his description it sounded like they did suggest to him to be on oxygen however he declined because he thought he didn't need it. We did ultrasound of his legs which showed A very short segment of the superficial femoral vein in the distal thigh just proximal to Kwasi's canal could not be optimally visualized. However, the remainder of the deep venous system in the left leg and the entire deep venous system in the right leg are negative for deep vein thrombosis. I did discuss with him yesterday referral to [facility] however he declined. Today I saw him in the morning and there was no chest pain his breathing improved. He was on 3 L of oxygen. Later on in the afternoon he went to the bathroom and then he had a syncopal episode. By The time I came to see him he was awake apparently saturation dropped to the 70s but his blood pressure remained normal. We moved him to his bed and he needed to be on 12 L of oxygen. He did say that he's having pain in his chest and shortness of breath we did give him Dilaudid to lessen his pain. We did a CT of the chest which showed Bilateral pulmonary emboli which was present on prior CT chest angiogram of and Since prior CT angiogram the saddle shape pulmonary embolism at the bifurcation of the main pulmonary artery appears to have migrated with more thrombus accumulation at the bifurcation of the right pulmonary artery. There appears to be more clot burden in the right lower lobe pulmonary artery and now within one of the right lateral basilar segmental branches which is likely the result of the migration of the saddle shaped embolism. Appearance of some increase nonocclusive clot burden in the right upper lobe pulmonary artery when directly compared to prior exam. No significant interval change in amount of clot burden on the left. Because of these findings I did speak to the patient again and suggested this time that he accepts transfer to [facility] and he did accept. I spoke with Dr. Miller the investment banking associate at the [facility] and she accepted the patient. The patient will be transferred at one point today. Since there is a delay in getting ground transportation of 3-4 hours we elected air transport. I did explain to the patient that his oxygenation because of flying may drops and he may need to be intubated. He expressed understanding. Laboratory Results 11/26/16 11/26/16 11/26/16 Range/Units 09:42 09:42 09:42 WBC 8.28 (4.8-10.8) 10^3/uL RBC 5.50 (4.70-6.10) 10^6/uL Hgb 15.5 (14.0-18.0) g/dL Hct 46.7 (42.0-52.0) % MCV 84.9 (80-90) FL MCH 28.2 (27-31) PG MCHC 33.2 (33-37) g/dL RDW Std Deviation 55.1 H (39-50) fL RDW Coeff of Giorgi 17.7 H (11.5-14.5) % Plt Count 207 (140-350) 10*3/uL MPV 9.8 (7.4-12.2) FL Immature Gran % (Auto) 0.4 (0-5) % Neut % (Auto) 57.9 (50-80) % Lymph % (Auto) 21.6 (10-50) % [place] % (Auto) 13.4 (5-15) % Eos % (Auto) 5.9 (0-8) % Baso % (Auto) 0.8 (0-1) % Immature Gran # (Auto) 0.03 10*3/UL Neut # (Auto) 4.79 10*3/UL Lymph # (Auto) 1.79 10*3/uL [place] # (Auto) 1.11 H (0.3-0.8) 10*3/UL Eos # (Auto) 0.49 10*3/UL Baso # (Auto) 0.07 10*3/UL WBC Morphology Comment Normal morphology (NORM) Plt Morphology Comment Normal morphology (NORM) RBC Morph Comment Normal morphology (NORM) PT 11.1 (9.7-11.4) secs INR 1.05 (0.00-5.90) N/A VBG pH (7.32-7.42) VBG pCO2 (45-55) mmHg VBG HCO3 (22-26) mmol/L VBG Base Excess (-2-2) MMOL/L Sodium 142 (135-145) meq/L Potassium 4.1 (3.8-5.2) meq/L Chloride 106 (98-112) meq/L Carbon Dioxide 26 (23-33) meq/L Anion Gap 10 (5-20) BUN 17 (7-22) mg/dL Creatinine 1.0 (0.70-1.50) mg/dL Estimated GFR > 60 (>60 ml/min/1.73m(2)) BUN/Creatinine Ratio 17.00 (6-20) Glucose 118 H (78-110) mg/dL Calculated Osmolality 296.0 H (267-292) mOsm/kg Calcium 10.0 (8.7-10.7) mg/dL Total Bilirubin (0.3-1.2) mg/dL AST (21-57) IU/L ALT (21-72) IU/L Alkaline Phosphatase (38-126) IU/L Troponin I (< 0.040) ng/mL Total Protein (6.1-8.0) g/dL Albumin (3.5-4.8) g/dL Globulin (2.50-4.10) g/dL Albumin/Globulin Ratio (1.3-2.0) mg/g 11/26/16 11/26/16 11/27/16 Range/Units 09:42 09:42 04:35 WBC (4.8-10.8) 10^3/uL RBC (4.70-6.10) 10^6/uL Hgb (14.0-18.0) g/dL Hct (42.0-52.0) % MCV (80-90) FL MCH (27-31) PG MCHC (33-37) g/dL RDW Std Deviation (39-50) fL RDW Coeff of Giorgi (11.5-14.5) % Plt Count (140-350) 10*3/uL MPV (7.4-12.2) FL Immature Gran % (Auto) (0-5) % Neut % (Auto) (50-80) % Lymph % (Auto) (10-50) % [place] % (Auto) (5-15) % Eos % (Auto) (0-8) % Baso % (Auto) (0-1) % Immature Gran # (Auto) 10*3/UL Neut # (Auto) 10*3/UL Lymph # (Auto) 10*3/uL [place] # (Auto) (0.3-0.8) 10*3/UL Eos # (Auto) 10*3/UL Baso # (Auto) 10*3/UL WBC Morphology Comment (NORM) Plt Morphology Comment (NORM) RBC Morph Comment (NORM) PT (9.7-11.4) secs INR (0.00-5.90) N/A VBG pH 7.44 H (7.32-7.42) VBG pCO2 40 L (45-55) mmHg VBG HCO3 28 H (22-26) mmol/L VBG Base Excess 3 H (-2-2) MMOL/L Sodium 139 (135-145) meq/L Potassium 3.9 (3.8-5.2) meq/L Chloride 109 (98-112) meq/L Carbon Dioxide 22 L (23-33) meq/L Anion Gap 8 (5-20) BUN 18 (7-22) mg/dL Creatinine 1.1 (0.70-1.50) mg/dL Estimated GFR > 60 (>60 ml/min/1.73m(2)) BUN/Creatinine Ratio 16.36 (6-20) Glucose 120 H (78-110) mg/dL Calculated Osmolality 290.0 (267-292) mOsm/kg Calcium 8.9 (8.7-10.7) mg/dL Total Bilirubin (0.3-1.2) mg/dL AST (21-57) IU/L ALT (21-72) IU/L Alkaline Phosphatase (38-126) IU/L Troponin I 0.045 H (< 0.040) ng/mL Total Protein (6.1-8.0) g/dL Albumin (3.5-4.8) g/dL Globulin (2.50-4.10) g/dL Albumin/Globulin Ratio (1.3-2.0) mg/g 11/27/16 11/27/16 11/27/16 Range/Units 04:35 13:01 13:01 WBC 9.20 (4.8-10.8) 10^3/uL RBC 5.37 (4.70-6.10) 10^6/uL Hgb 15.1 (14.0-18.0) g/dL Hct 46.2 (42.0-52.0) % MCV 86.0 (80-90) FL MCH 28.1 (27-31) PG MCHC 32.7 L (33-37) g/dL RDW Std Deviation 56.2 H (39-50) fL RDW Coeff of Giorgi 18.1 H (11.5-14.5) % Plt Count 207 (140-350) 10*3/uL MPV 9.5 (7.4-12.2) FL Immature Gran % (Auto) 0.2 (0-5) % Neut % (Auto) 55.3 (50-80) % Lymph % (Auto) 25.8 (10-50) % [place] % (Auto) 12.5 (5-15) % Eos % (Auto) 5.2 (0-8) % Baso % (Auto) 1.0 (0-1) % Immature Gran # (Auto) 0.02 10*3/UL Neut # (Auto) 5.09 10*3/UL Lymph # (Auto) 2.37 10*3/uL [place] # (Auto) 1.15 H (0.3-0.8) 10*3/UL Eos # (Auto) 0.48 10*3/UL Baso # (Auto) 0.09 10*3/UL WBC Morphology Comment See comments (NORM) Plt Morphology Comment Normal morphology (NORM) RBC Morph Comment Normal morphology (NORM) PT (9.7-11.4) secs INR (0.00-5.90) N/A VBG pH (7.32-7.42) VBG pCO2 (45-55) mmHg VBG HCO3 (22-26) mmol/L VBG Base Excess (-2-2) MMOL/L Sodium 143 (135-145) meq/L Potassium 4.2 (3.8-5.2) meq/L Chloride 108 (98-112) meq/L Carbon Dioxide 22 L (23-33) meq/L Anion Gap 13 (5-20) BUN 19 (7-22) mg/dL Creatinine 1.4 (0.70-1.50) mg/dL Estimated GFR 51 (>60 ml/min/1.73m(2)) BUN/Creatinine Ratio 13.57 (6-20) Glucose 172 H (78-110) mg/dL Calculated Osmolality 301.0 H (267-292) mOsm/kg Calcium 9.2 (8.7-10.7) mg/dL Total Bilirubin 0.8 (0.3-1.2) mg/dL AST 34 (21-57) IU/L ALT 52 (21-72) IU/L Alkaline Phosphatase 97 (38-126) IU/L Troponin I 0.059 H (< 0.040) ng/mL Total Protein 7.4 (6.1-8.0) g/dL Albumin 3.8 (3.5-4.8) g/dL Globulin 3.6 (2.50-4.10) g/dL Albumin/Globulin Ratio 1.00 L (1.3-2.0) mg/g 11/27/16 11/27/16 Range/Units 13:01 13:02 WBC (4.8-10.8) 10^3/uL RBC (4.70-6.10) 10^6/uL Hgb (14.0-18.0) g/dL Hct (42.0-52.0) % MCV (80-90) FL MCH (27-31) PG MCHC (33-37) g/dL RDW Std Deviation (39-50) fL RDW Coeff of Giorgi (11.5-14.5) % Plt Count (140-350) 10*3/uL MPV (7.4-12.2) FL Immature Gran % (Auto) (0-5) % Neut % (Auto) (50-80) % Lymph % (Auto) (10-50) % [place] % (Auto) (5-15) % Eos % (Auto) (0-8) % Baso % (Auto) (0-1) % Immature Gran # (Auto) 10*3/UL Neut # (Auto) 10*3/UL Lymph # (Auto) 10*3/uL [place] # (Auto) (0.3-0.8) 10*3/UL Eos # (Auto) 10*3/UL Baso # (Auto) 10*3/UL WBC Morphology Comment (NORM) Plt Morphology Comment (NORM) RBC Morph Comment (NORM) PT (9.7-11.4) secs INR (0.00-5.90) N/A VBG pH 7.34 (7.32-7.42) VBG pCO2 37 L (45-55) mmHg VBG HCO3 20 L (22-26) mmol/L VBG Base Excess -6 L (-2-2) MMOL/L Sodium (135-145) meq/L Potassium (3.8-5.2) meq/L Chloride (98-112) meq/L Carbon Dioxide (23-33) meq/L Anion Gap (5-20) BUN (7-22) mg/dL Creatinine (0.70-1.50) mg/dL Estimated GFR (>60 ml/min/1.73m(2)) BUN/Creatinine Ratio (6-20) Glucose (78-110) mg/dL Calculated Osmolality (267-292) mOsm/kg Calcium (8.7-10.7) mg/dL Total Bilirubin (0.3-1.2) mg/dL AST (21-57) IU/L ALT (21-72) IU/L Alkaline Phosphatase (38-126) IU/L Troponin I 0.038 (< 0.040) ng/mL Total Protein (6.1-8.0) g/dL Albumin (3.5-4.8) g/dL Globulin (2.50-4.10) g/dL Albumin/Globulin Ratio (1.3-2.0) mg/g Follow-up per [facility] postdischarge Exam - Vitals Vital Signs: Vital Signs Temperature 97.4 F Temperature Source Oral Pulse Rate [Pulse Oximeter] 53 Pulse Rate [Apical] 62 Pulse Rate [Telemetry] 60 Pulse Rate 67 Respiratory Rate 20 Blood Pressure [Left Arm] 116/70 Blood Pressure [Right Arm] 128/68 Blood Pressure 125/74 Pulse Ox 91 Oxygen Flow Rate 3 Oxygen Delivery Method Nasal Cannula Height 5 ft 6 in Weight 259 lb 3.2 oz Patient Problems - Patient Problem List (1) Bilateral pulmonary embolism Current Visit: No Status: Acute Code(s): I26.99 - Other pulmonary embolism without acute cor pulmonale Category: Medical (2) Diabetes Current Visit: Yes Status: Acute Code(s): E11.9 - Type 2 diabetes mellitus without complications Category: Medical (3) Hypertension Current Visit: Yes Status: Acute Code(s): I10 - Essential (primary) hypertension Category: Medical
== END 2016-11-27 16:48 | disposition short-term general hospital (02) | DRG 176 ==
LOC: ER 09:31 → MED/SURG 12:07
PROVIDERS: ADMIT Internal Medicine; ATTEND Internal Medicine